=== PATIENT | female | born 2000 | race Caucasian/White ===

== ENCOUNTER 2021-10-26 00:59 | Emergency (ER) | payer BC ==
[~2021-10-26] VITALS: Ht 167.6 cm; Wt 59.0 kg
[2021-10-26 01:21] VITALS: BP_SYST 135
[2021-10-26] MEDS ORDERED: predniSONE 20 MG TABLET PO ONE (02:30)
[2021-10-26] MEDS ORDERED: LORATADINE 10 MG TABLET PO ONE (02:30)
[2021-10-26] MEDS ORDERED: DEXA20TA PO (04:40)
[2021-10-26 05:15] VITALS: BP_SYST 123
[2021-10-26 05:19] LABS: BASOPHILS # (AUTO) 0.1 K/uL (0.0-0.2); BASOPHILS % (AUTO) 0.5 % (0.0-2.0); EOSINOPHILS # (AUTO) 0.2 K/uL (0.0-0.4); EOSINOPHILS % (AUTO) 1.2 % (0.0-4.0); LYMPHOCYTES # (AUTO) 1.9 K/uL (1.0-5.5); LYMPHOCYTES % (AUTO) 14.5 % (20.5-51.5); MEAN CORPUSCULAR VOLUME 81 fL (79.0-98.0); MONOCYTES # (AUTO) 0.6 K/uL (0.0-1.0); MONOCYTES % (AUTO) 4.4 % (1.7-9.3); NEUTROPHILS # (AUTO) 10.3 K/uL (1.8-7.7); NEUTROPHILS % (AUTO) 79.4 % (40.0-70.0); PLATELET COUNT (AUTO) 320 K/uL (130-430); RED BLOOD CELL COUNT(AUTO) 4.56 MIL/uL (4.2-6.2)
[2021-10-26 05:35] LABS: CALCIUM 9.6 mg/dL (8.4-11.0); CREATININE 0.77 mg/dL (0.55-1.30); POTASSIUM 3.6 mmol/L (3.5-5.1)
[2021-10-26 05:39] LABS: ALBUMIN 4.1 g/dL (3.4-4.8); TOTAL BILIRUBIN 0.5 mg/dL (0.0-1.0)
== END 2021-10-26 05:15 | disposition home or self-care (01) ==
LOC: SED 00:59
DX: B09 Unspecified viral infection characterized by skin and mucous membrane lesions (principal); B27.90 Infectious mononucleosis, unspecified without complication; R21 Rash and other nonspecific skin eruption; J02.9 Acute pharyngitis, unspecified; Z91.040 Latex allergy status; Z79.899 Other long term (current) drug therapy
CPT/HCPCS: 99283; 80053; 85025; 36415; J7512